=== PATIENT | female | born 1970 ===

== ENCOUNTER 2016-09-18 16:41 | Inpatient (IN) | payer BC ==
[2016-09-18 16:42] VITALS: BMI 28.2
--- NOTE | 2016-09-18 17:09 | ED PDOC ---
HPI: General Adult Time Seen by Provider: 09/18/16 16:57 Chief Complaint (Nursing): Fever Chief Complaint (Provider): fever History Per: Patient Additional Complaint(s): Patient states she is s/p hysterectomy 4 days ago and she presents today with cough and fever for the past 2 days. Patient states she has mild abdominal pain from surgery but denies any moderate to severe pain. No dysuria or vaginal bleeding. Patient denies any headache. She states temp measured at home earlier today was 101.6. Patient states she spiked fever after the surgery while she was still in the hospital and her surgeon kept her here for another day. Fever resolved so she was sent home. She returns today with persistent fever and dry cough. Patient also has history of anemia and has iron transfused post-op. She states she takes iron at home daily. Past Medical History Reviewed: Historical Data Vital Signs: Last Vital Signs Temp 99 F 09/18/16 16:48 Pulse 116 H 09/18/16 16:48 Resp 20 09/18/16 16:48 BP 125/70 09/18/16 16:48 Pulse Ox 98 09/18/16 18:33 - Medical History PMH: Anemia - Surgical History Other surgeries: tubal ligation, hysterectomy - Family History Family History: States: No Known Family Hx - Living Arrangements Living Arrangements: With Family - Social History Current smoker - smoking cessation education provided: No Alcohol: None Drugs: Denies - Home Medications Home Medications: Ambulatory Orders Medication Instructions Recorded Multivitamin [Multivitamins] 1 each PO DAILY 09/14/16 Docusate [Colace] 200 mg PO BID 09/18/16 oxyCODONE/Acetaminophen [Percocet 1 tab PO HS 09/18/16 5/325 mg Tab] - Allergies Allergies/Adverse Reactions: Allergies Allergy/AdvReac Type Severity Reaction Status Date / Time No Known Allergies Allergy Verified 09/18/16 16:48 Review of Systems ROS Statement: Except As Marked, All Systems Reviewed And Found Negative Constitutional: Positive for: Fever Cardiovascular: Negative for: Chest Pain Respiratory: Positive for: Cough (dry) Gastrointestinal: Positive for: Abdominal Pain (2 days post op). Negative for: Nausea, Vomiting, Diarrhea Genitourinary Female: Negative for: Dysuria, Vaginal Discharge, Vaginal Bleeding Physical Exam - Reviewed Nursing Documentation Reviewed: Yes Vital Signs Reviewed: Yes - Physical Exam Appears: Positive for: Well, Non-toxic, No Acute Distress Eye Exam: Positive for: Normal appearance, EOMI, PERRL Cardiovascular/Chest: Positive for: Regular Rate, Rhythm Respiratory: Positive for: Normal Breath Sounds Gastrointestinal/Abdominal: Positive for: Other (mildly tenderness ) Back: Negative for: L CVA Tenderness, R CVA Tenderness Extremity: Positive for: Normal ROM. Negative for: Pedal Edema Neurologic/Psych: Positive for: Alert, Oriented - Laboratory Results Result Diagrams: 09/18/16 18:38 09/18/16 18:38 - ECG O2 Sat by Pulse Oximetry: 98 Pulse Ox Interpretation: Normal - Other Rad CXR X-Ray: Interpreted by Me, Viewed By Me X-Ray Interpretation: no infiltrate, NAP Medical Decision Making Medical Decision Makin46 year old with fever and cough for 2 days, s/p hysterectomy Plan: Blood cultures CBC CMP PO motrin IVF Flu swab CXR Employee Development Director spoke with Dr. Lancaster, patient gynecological surgeon. He states to admit to his service. He agrees with ordered CT chest, abd and pelvis with IV contrast and states to start IV zosyn and flagyl empirically. Will contact Dr. Lancaster with CT results. Disposition - Clinical Impression Clinical Impression: Postoperative fever - Patient ED Disposition Is Patient to be Admitted: Transfer of Care - Disposition Disposition: Transfer of Care Disposition Time: 19:50 Condition: STABLE Patient Signed Over To: Hugo Pruett Handoff Comments: signed out to Dr. Pruett pending CT Results - Vital Signs Recent Vital Signs: Last Vital Signs Temp 99 F 09/18/16 16:48 Pulse 116 H 09/18/16 16:48 Resp 20 09/18/16 16:48 BP 125/70 09/18/16 16:48 Pulse Ox 98 09/18/16 19:50 - Labs Result Diagrams: 09/18/16 18:38 09/18/16 18:38 Labs: Laboratory Results - last 24 hr 09/18/16 09/18/16 09/18/16 15:37 17:30 17:33 WBC RBC Hgb Hct MCV MCH MCHC RDW Plt Count MPV Neut % (Auto) Lymph % (Auto) [place] % (Auto) Eos % (Auto) Baso % (Auto) Neut # Lymph # [place] # Eos # Baso # Neutrophils % (Manual) Band Neutrophils % Lymphocytes % (Manual) Monocytes % (Manual) Eosinophils % (Manual) Platelet Estimate Plt Clumps, EDTA Hypochromasia (manual) Anisocytosis (manual) Microcytosis (manual) Macrocytosis (manual) pO2 17 L VBG pH 7.39 VBG pCO2 38 L VBG HCO3 21.6 VBG Total CO2 24.2 VBG O2 Sat (Calc) 22.2 L VBG Base Excess -1.7 L VBG Potassium 4.1 Sodium 133.0 Chloride 102.0 Glucose 127 H Lactate 2.0 FiO2 21.0 Potassium Carbon Dioxide Anion Gap BUN Creatinine Est GFR ( Amer) Est GFR (Non-Af Amer) Random Glucose Calcium Total Bilirubin AST ALT Alkaline Phosphatase Total Protein Albumin Globulin Albumin/Globulin Ratio Venous Blood Potassium 4.1 Urine Color Yellow Urine Clarity Slighty-cloudy Urine pH 6.0 Ur Specific [place] 1.015 Urine Protein 30 Urine Glucose (UA) Neg Urine Ketones Trace Urine Blood Moderate Urine Nitrate Negative Urine Bilirubin Negative Urine Urobilinogen 2.0 H Ur Leukocyte Esterase Trace Urine RBC (Auto) 6 H Urine Microscopic WBC 6 H Ur Squamous Epith Cells 6 H Urine Bacteria Rare Influenza Typ A,B (EIA) Negative for flu a/b 09/18/16 18:38 WBC 23.6 H D RBC 3.96 Hgb 8.3 L Hct 27.7 L MCV 70.0 L MCH 21.0 L MCHC 29.9 L RDW 17.7 H Plt Count 249 MPV 8.3 Neut % (Auto) 91.8 H Lymph % (Auto) 2.5 L [place] % (Auto) 5.4 Eos % (Auto) 0.0 Baso % (Auto) 0.3 Neut # 21.6 H Lymph # 0.6 L [place] # 1.3 H Eos # 0.0 Baso # 0.1 Neutrophils % (Manual) 90 H Band Neutrophils % 2 Lymphocytes % (Manual) 2 L Monocytes % (Manual) 5 Eosinophils % (Manual) 1 Platelet Estimate Normal Plt Clumps, EDTA Present Hypochromasia (manual) Moderate Anisocytosis (manual) Slight Microcytosis (manual) Slight Macrocytosis (manual) Slight pO2 VBG pH VBG pCO2 VBG HCO3 VBG Total CO2 VBG O2 Sat (Calc) VBG Base Excess VBG Potassium Sodium 135 Chloride 98 Glucose Lactate FiO2 Potassium 3.8 Carbon Dioxide 22 Anion Gap 18 BUN 10 Creatinine 0.5 L Est GFR ( Amer) > 60 Est GFR (Non-Af Amer) > 60 Random Glucose 120 H Calcium 9.5 Total Bilirubin 1.5 H AST 113 H ALT 69 H Alkaline Phosphatase 97 Total Protein 8.0 Albumin 4.3 Globulin 3.7 Albumin/Globulin Ratio 1.2 Venous Blood Potassium Urine Color Urine Clarity Urine pH Ur Specific [place] Urine Protein Urine Glucose (UA) Urine Ketones Urine Blood Urine Nitrate Urine Bilirubin Urine Urobilinogen Ur Leukocyte Esterase Urine RBC (Auto) Urine Microscopic WBC Ur Squamous Epith Cells Urine Bacteria Influenza Typ A,B (EIA)
[2016-09-18] MEDS ORDERED: Sodium Chloride 0.9% 1,000 ML IV STA ×2 (17:27→19:01)
--- NOTE | 2016-09-18 17:47 | RAD ---
HISTORY: cough COMPARISON: None available TECHNIQUE: Chest PA and lateral FINDINGS: LUNGS: No focal consolidation. Please note that chest x-ray has limited sensitivity for the detection of pulmonary masses. PLEURA: No significant pleural effusion identified. No definite pneumothorax . CARDIOVASCULAR: The cardiomediastinal silhouette appears within normal limits of size. OSSEOUS STRUCTURES: No acute osseous abnormality identified. VISUALIZED UPPER ABDOMEN: Unremarkable. OTHER FINDINGS: None. IMPRESSION: No focal consolidation, significant pleural effusion, or definite pneumothorax identified.
[2016-09-18 17:49] LABS: RBC URINE 6 /hpf (0-3); URINE BACTERIA RARE (<OCC); URINE BILIRUBIN NEGATIVE (NEGATIVE); URINE BLOOD MODERATE (NEGATIVE); URINE COLOR YELLOW (YELLOW); URINE GLUCOSE (UA) NEG (Normal); URINE KETONE TRACE mg/dL (NEGATIVE); URINE LEUKOCYTE ESTERASE TRACE Leu/uL (Negative); URINE PROTEIN 30 mg/dL (NEGATIVE); WBC URINE 6 /hpf (0-5)
[2016-09-18 18:07] LABS: VENOUS BLOOD GAS BASE EXCESS -1.7 mmol/L (0.0-2.0); VENOUS BLOOD GAS PCO2 38 mmHg (40-60); VENOUS BLOOD PH 7.39 (7.32-7.43)
[2016-09-18 18:42] LABS: BASO # 0.1 K/uL (0.0-0.2); BASO % 0.3 % (0.0-2.0); HEMATOCRIT 27.7 % (34.0-47.0); LYMPH # 0.6 K/uL (1.0-4.3); LYMPH % 2.5 % (20.0-40.0); MEAN CORPUSCULAR HGB CONC 29.9 g/dL (33.0-37.0); MEAN PLATELET VOLUME 8.3 fl (7.2-11.7); MONO # 1.3 K/uL (0.0-0.8); MONO % 5.4 % (0.0-10.0); NEUT # 21.6 K/uL (1.8-7.0); NEUT % 91.8 % (50.0-75.0); PLATELET COUNT 249 K/uL (130-400); RED CELL DISTRIBUTION WIDTH 17.7 % (11.5-14.5)
[2016-09-18 18:47] LABS: WHITE BLOOD COUNT 23.6 K/uL (4.8-10.8)
[2016-09-18 18:55] LABS: ALB/GLOB RATIO 1.2 (1.0-2.1); ALKALINE PHOSPHATASE 97 U/L (38-126); ALT/SGPT 69 U/L (9-52); AST/SGOT 113 U/L (14-36); BILIRUBIN,TOTAL 1.5 mg/dl (0.2-1.3); BLOOD UREA NITROGEN 10 mg/dl (7-17); CALCIUM 9.5 mg/dL (8.4-10.2); CARBON DIOXIDE 22 mmol/L (22-30); CHLORIDE 98 mmol/L (98-107); GFR AFRICAN-AMERICAN > 60; GLUCOSE,RANDOM 120 mg/dL (65-105); POTASSIUM 3.8 MMOL/L (3.6-5.0); SODIUM 135 mmol/l (132-148)
[2016-09-18 19:34] LABS: NEUTROPHIL 90 % (42-75); TOTAL CELLS COUNTED 100
[2016-09-18 19:35] LABS: EOSINOPHIL 1 % (0-7); PLATELET CLUMPS PRESENT
[2016-09-18] MEDS ORDERED: metroNIDAZOLE 500mg/100ml NS 100 ML IVPB STA (19:46)
[2016-09-18] MEDS ORDERED: Piperacillin/Tazobact 3.375 GM in Sodium Chloride 0.9% 100 ML IVPB STA (19:46)
[2016-09-18] MEDS ORDERED: Sodium Chloride 0.9% 50 ML IV ONE (20:03)
[2016-09-18] MEDS ORDERED: Iohexol 300 100 ML IJ ONE (20:03)
[2016-09-18] MEDS ORDERED: Piperacillin/Tazobact 3.375 gm Inj IVPB ONE (20:33)
[2016-09-18] MEDS ORDERED: metroNIDAZOLE 500mg/100ml NS 100 ML IVPB ONE (20:33)
--- NOTE | 2016-09-18 20:43 | ED PDOC ---
"- Laboratory Results Result Diagrams: 09/18/16 18:38 09/18/16 18:38 - ECG O2 Sat by Pulse Oximetry: 97 Medical Decision Making Medical Decision Making: Time: 1999 Patient signed out by Ayana Street PA-C pending CT Time: 2119 EXAM: CT Abdomen and Pelvis With Intravenous Contrast. CLINICAL HISTORY: 46 years old, female; Pain; Abdominal pain; Chest pain; Prior surgery; Surgery date: 3-7 days postoperative; Surgery type: Hysterectomy; Additional info: Post-op fever TECHNIQUE: Axial computed tomography images of the abdomen and pelvis with intravenous contrast. This CT exam was performed using one or more of the following dose reduction techniques : automated exposure control, adjustment of the mA and/or kV according to patient size, and/ or use of iterative reconstruction technique. Coronal and sagittal reformatted images were created and reviewed. CONTRAST: 100 mL of [id number] administered intravenously. COMPARISON: No relevant prior studies available. Findings: ABDOMEN: Liver: Unremarkable. No mass. Gallbladder and bile ducts: Unremarkable. No calcified stones. No ductal dilation. Pancreas: Unremarkable. No mass. No ductal dilation. Spleen: Unremarkable. No splenomegaly. Adrenals: Unremarkable. No mass. Kidneys and ureters: Unremarkable. No solid mass. No hydronephrosis. Stomach and bowel: Wall thickening involving the sigmoid and rectum is presumably secondarily inflame less likely proctitis. Moderate fecal retention. Appendix: No findings to suggest acute appendicitis. PELVIS: Bladder: Hysterectomy which is recent. There is stranding and infiltration identified in the pelvic fat. Urinary bladder wall is thickened with surrounding stranding suggesting cystitis. Air in the bladder presumably from a recent catheter correlate clinically. SAMUEL DUBOIS | Preliminary Radiology Report Page 2 of 3 Reproductive: See above. ABDOMEN and PELVIS: Intraperitoneal space: There is a midline pelvic fluid collection identified measuring 3.5 x 5.3 cm on image 210 centrally anterior to the rectum with foci of gas anteriorly. Although this represent a seroma developing abscess is not excludable. Bones/joints: No acute fracture. No dislocation. Soft tissues: The air in the abdominal wall is presumably postprocedural. Vasculature: Unremarkable. No abdominal aortic aneurysm. Lymph nodes: There appear to be peripheral enhancing low density structures in the adnexa bilaterally larger on the left measuring 2.9 x 1.7 cm on image 2. If the ovaries b remain these may be a remnant ovarian cysts. If there has been a resection of the ovaries findings may represent abscesses or developing lymphoceles. Retroperitoneal nodes may be inflamed with some fat stranding. Etiologies include reactive versus neoplastic. IMPRESSION: 1. Hysterectomy which is recent. There is stranding and infiltration identified in the pelvic fat. Urinary bladder wall is thickened with surrounding stranding suggesting cystitis. Air in the bladder presumably from a recent catheter correlate clinically. 2. There is a midline pelvic fluid collection identified measuring 3.5 x 5.3 cm on image 210 centrally anterior to the rectum with foci of gas anteriorly. Although this represent a seroma developing abscess is not excludable. 3. There appear to be peripheral enhancing low density structures in the adnexa bilaterally larger on the left measuring 2.9 x 1.7 cm on image 2. If the ovaries b remain these may be a remnant ovarian cysts. If there has been a resection of the ovaries findings may represent abscesses or developing lymphoceles. 4. Wall thickening involving the sigmoid and rectum is presumably secondarily inflame less likely proctitis. EXAM: CT Chest With Intravenous Contrast. CLINICAL HISTORY: 46 years old, female; Pain; Abdominal pain; Chest pain; Prior surgery; Surgery date: 3-7 days postoperative; Surgery type: Hysterectomy; Additional info: Post-op fever TECHNIQUE: Axial computed tomography images of the chest with intravenous contrast. This CT exam was performed using one or more of the following dose reduction techniques: automated exposure control, adjustment of the mA and/or kV according to patient size, and/or use of iterative reconstruction technique. Coronal and sagittal reformatted images were created and reviewed. CONTRAST: SAMUEL DUBOIS | Preliminary Radiology Report SENIOR [employer]ACLE DATABASE DEVELOPER (QA) DISCREPANCY? If there is a discrepancy between the preliminary and final interpretation, please notify [facility] via [email or web address]. If you do not have access to our QA portal, call our QA team at [phone] CONFIDENTIALITY STATEMENT This report is intended only for the use of the referring physician, and only in accordance with law, If you received this in error, call [phone] Page 3 of 3 100 mL of [id number] administered intravenously. EXAM DATE/TIME: 09/18/2016 7:46 PM COMPARISON: No relevant prior studies available. FINDINGS: Lungs: Strands of atelectasis or fibrosis in both lungs. Pleural space: Small left pleural effusion. No pneumothorax. Heart: Unremarkable. No cardiomegaly. No significant pericardial effusion. Thyroid: Thyroid cyst on the left. Bones/joints: Unremarkable. No acute fracture. No dislocation. Soft tissues: Unremarkable. Vasculature: Unremarkable. No thoracic aortic aneurysm. Lymph nodes: Unremarkable. No enlarged lymph nodes. IMPRESSION: No acute findings. Discussed case with Dr. Lancaster, notes findings are consistent with normal post op changes. Requesting patient be admitted to his service and started on IV antibiotics, Discussed plan and findings with patient who agrees with plan on admission and antibiotics. Scribe Attestation: Documented by Claudette Diaz acting as a scribe for Hugo Tejada MD MD Scribe Attestation: All medical record entries made by the Scribe were at my direction and personally dictated by me. I have reviewed the chart and agree that the record accurately reflects my personal performance of the history, physical exam, medical decision making, and the department course for this patient. I have also personally directed, reviewed, and agree with the discharge instructions and disposition. Disposition Discussed With : Bassam Lancaster Counseled Patient/Family Regarding: Studies Performed, Diagnosis - Clinical Impression Clinical Impression: Postoperative fever - POA Present On Arrival: None - Disposition Disposition: Hospitalized as Observation Patient Disposition Time: 22:00 Condition: STABLE"
[2016-09-18] MEDS ORDERED: Oxycodone/Acetaminophen 5/325 mg Tab PO ONE (23:34)
[2016-09-19] MEDS ORDERED: Oxycodone/Acetaminophen 5/325 mg Tab PO PRN (00:37)
[2016-09-19] MEDS: Piperacillin/Tazobact 3.375 GM in Sodium Chloride 0.9% 100 ML IVPB SCH ×3 (01:29→16:30)
[2016-09-19] MEDS: Lactated Ringer's 1,000 ML IV SCH ×2 (05:35→11:16)
[2016-09-19 08:09] LABS: BLOOD UREA NITROGEN 11 mg/dl (7-17); CALCIUM 8.5 mg/dL (8.4-10.2); CARBON DIOXIDE 23 mmol/L (22-30); CHLORIDE 104 mmol/L (98-107); GFR AFRICAN-AMERICAN > 60; GLUCOSE,RANDOM 107 mg/dL (65-105); POTASSIUM 3.7 MMOL/L (3.6-5.0); SODIUM 137 mmol/l (132-148)
[2016-09-19] MEDS ORDERED: metroNIDAZOLE 500mg/100ml NS 100 ML IVPB SCH (09:00)
[2016-09-19] MEDS ORDERED: Piperacillin/Tazobact 3.375 GM in Sodium Chloride 0.9% 100 ML IVPB SCH (09:00)
[2016-09-19 09:06] LABS: BASO % 0.3 % (0.0-2.0); LYMPH # 0.3 K/uL (1.0-4.3); LYMPH % 2.2 % (20.0-40.0); MEAN CELL VOLUME 70.2 fl (81.0-99.0); MEAN CORPUSCULAR HEMOGLOBIN 21.5 pg (27.0-31.0); MEAN CORPUSCULAR HGB CONC 30.6 g/dL (33.0-37.0); MEAN PLATELET VOLUME 7.4 fl (7.2-11.7); MONO # 0.7 K/uL (0.0-0.8); MONO % 4.6 % (0.0-10.0); NEUT # 13.6 K/uL (1.8-7.0); NEUT % 92.9 % (50.0-75.0); PLATELET COUNT 205 K/uL (130-400); WHITE BLOOD COUNT 14.6 K/uL (4.8-10.8)
--- NOTE | 2016-09-19 11:09 | CT ---
CT chest, abdomen, and pelvis with IV contrast Indication: Postop fever Technique: Contiguous axial images of the chest, abdomen, and pelvis. Coronal and Sagittal reformats generated and reviewed. Oral contrast was not administered. 100 cc Omnipaque 300 injected. Radiation dose: Total exam DLP = 1238.22 MGy-cm. Comparison: None available. Findings: Visualized portions of the inferior thyroid gland demonstrates 1.5 x 0.9 cm left lower pole hypodense nodule. The mediastinal and hilar vascular structures appear within normal limits. The heart appears within normal limits of size. Left basilar atelectasis. Small left pleural effusion. No pneumothorax. No suspicious pulmonary nodules measuring greater than 5 mm. The liver, spleen, kidneys, pancreas, adrenal glands, and gallbladder appear unremarkable. The stomach is nondistended. No evidence of bowel obstruction. Rectosigmoid colonic wall thickening ; correlate clinically for infectious or inflammatory etiologies. Proctitis considered less likely. Moderate constipation. No definite free air. The appendix appears within normal limits of caliber. No secondary signs of acute appendicitis. Midline pelvic fluid collection measures approximately 3.5 x 5.3 cm (image 210) this finding is noted anterior to the rectum with foci of gas anteriorly. While this may reflect a seroma, abscess is not excluded. Peripheral enhancing low-density structures within bilateral at adnexa, [id number] (left measuring approximately 2.9 x 1.7 cm on image 2) ; these are indeterminate ; if the ovaries remain possibly remnant ovarian cyst, however ovary sipped thin resected considerations include abscesses or developing lymphoceles. Retroperitoneal lymph nodes may be inflamed with inflammatory stranding. Uterus is absent consistent with hysterectomy. Mild urinary bladder wall thickening with adjacent inflammatory changes ; correlate clinically including urinalysis to assess for cystitis. Air within the urinary bladder may be secondary to recent instrumentation. Subcutaneous emphysema within the abdominal wall, presumed postsurgical. No acute osseous abnormality is detected. Impression: 1.5 x 0.9 cm left lower pole hypodense thyroid nodule. Outpatient thyroid ultrasound may be considered for further Left basilar atelectasis. Small left pleural effusion. Rectosigmoid colonic wall thickening ; correlate clinically for infectious or inflammatory etiologies. Proctitis considered less likely. Moderate constipation. Midline pelvic fluid collection measures approximately 3.5 x 5.3 cm (image 210) this finding is noted anterior to the rectum with foci of gas anteriorly. While this may reflect a seroma, abscess is not excluded. Peripheral enhancing low-density structures within bilateral at adnexa, [id number] (left measuring approximately 2.9 x 1.7 cm on image 2) ; these are indeterminate ; if the ovaries remain possibly remnant ovarian cyst, however ovary sipped thin resected considerations include abscesses or developing lymphoceles. Retroperitoneal lymph nodes may be inflamed with inflammatory stranding. Uterus is absent consistent with hysterectomy. Mild urinary bladder wall thickening with adjacent inflammatory changes ; correlate clinically including urinalysis to assess for cystitis. Air within the urinary bladder may be secondary to recent instrumentation. Subcutaneous emphysema within the abdominal wall, presumed postsurgical. Preliminary impression was provided by virtual radiologic.
[2016-09-19 12:25] LABS: NEUTROPHIL 94 % (42-75); TOTAL CELLS COUNTED 100
[2016-09-19 12:27] LABS: LARGE PLATELETS PRESENT
--- NOTE | 2016-09-19 17:28 | CP.PCM.PN ---
Subjective - Date & Time of Evaluation Date of Evaluation: 09/19/16 Time of Evaluation: 17:26 - Subjective Subjective: Called at 400pm to evaluate patient by primary MD. Pt requesting comfortably in bed. Patient without complaints at this time. Patient denies feeling any fevers or chills. Patient denies any nausea or vomiting. Patient reports tolerating diet. Patient reports minimal pain. Objective - Vital Signs/Intake and Output Vital Signs (last 24 hours): Temp Pulse Resp BP Pulse Ox 99 F 111 H 20 114/77 99 09/19/16 16:15 09/19/16 16:15 09/19/16 16:15 09/19/16 16:15 09/19/16 16:15 - Medications Medications: Current Medications Acetaminophen (Tylenol 325mg Tab) 650 mg PO Q4 PRN PRN Reason: Fever >100.4 F Last Admin: 09/19/16 14:45 Dose: 650 mg Lactated Ringer's (Lactated Ringer's) 1,000 mls @ 75 mls/hr IV .[id number] [facility] Last Admin: 09/19/16 11:16 Dose: Not Given Piperacillin Sod/Tazobactam (Sod 3.375 gm/ Sodium Chloride) 100 mls @ 100 mls/ hr IVPB Q8 [facility] Last Admin: 09/19/16 16:30 Dose: 100 mls/hr Iron Sucrose 200 mg/ Sodium (Chloride) 110 mls @ 110 mls/hr IVPB DAILY [facility] Last Admin: 09/19/16 16:30 Dose: 110 mls/hr Ketorolac Tromethamine (Toradol) 30 mg IVP Q6 [facility] Last Admin: 09/19/16 16:37 Dose: 30 mg Oxycodone/Acetaminophen (Percocet 5/325 Mg Tab) 2 tab PO Q6 PRN PRN Reason: Pain, moderate (4-7) Stop: 09/22/16 00:38 - Labs Labs: 09/19/16 05:30 09/19/16 05:30 - Constitutional Appears: Well, No Acute Distress - Respiratory Exam Respiratory Exam: Clear to Ausculation Bilateral, NORMAL BREATHING PATTERN - Cardiovascular Exam Cardiovascular Exam: REGULAR RHYTHM - GI/Abdominal Exam Additional comments: Abdomen soft, nontender, nondistended. No rebound, no guarding. All port sites clean, dry, intact. No erythema, tenderness, swelling, induration , drainage. Normal bowel sounds. Assessment and Plan - Assessment and Plan (Free Text) Assessment: readmission for postoperative fevers status post robotic-assisted hysterectomy. Patient's status improving. White blood cell count decreasing today, low-grade fever today. Clinically, patient improving. Plan: Plan to continue IV antibiotics, IV iron transfusions. Continue current management. I discussed case with primary physician who will be seeing patient. I discussed plan with the patient and all patient questions answered.
[2016-09-20] MEDS: Piperacillin/Tazobact 3.375 GM in Sodium Chloride 0.9% 100 ML IVPB SCH ×2 (01:45→08:06)
[2016-09-20] MEDS: Lactated Ringer's 1,000 ML IV SCH (01:46)
[2016-09-20 07:12] LABS: BASO % 0.5 % (0.0-2.0); EOS # 0.1 K/uL (0.0-0.7); EOS % 0.8 % (0.0-4.0); HEMATOCRIT 20.3 % (34.0-47.0); LYMPH # 0.5 K/uL (1.0-4.3); LYMPH % 6.4 % (20.0-40.0); MEAN CELL VOLUME 70.3 fl (81.0-99.0); MEAN CORPUSCULAR HEMOGLOBIN 21.6 pg (27.0-31.0); MEAN CORPUSCULAR HGB CONC 30.7 g/dL (33.0-37.0); MEAN PLATELET VOLUME 8.4 fl (7.2-11.7); MONO # 0.5 K/uL (0.0-0.8); MONO % 6.9 % (0.0-10.0); NEUT # 6.7 K/uL (1.8-7.0); NEUT % 85.4 % (50.0-75.0); RED CELL DISTRIBUTION WIDTH 18.4 % (11.5-14.5); WHITE BLOOD COUNT 7.9 K/uL (4.8-10.8)
[2016-09-20 07:16] LABS: ALB/GLOB RATIO 0.9 (1.0-2.1); ALKALINE PHOSPHATASE 108 U/L (38-126); ALT/SGPT 67 U/L (9-52); AST/SGOT 52 U/L (14-36); BILIRUBIN,TOTAL 0.6 mg/dl (0.2-1.3); BLOOD UREA NITROGEN 15 mg/dl (7-17); CALCIUM 8.7 mg/dL (8.4-10.2); CARBON DIOXIDE 22 mmol/L (22-30); CHLORIDE 105 mmol/L (98-107); GFR AFRICAN-AMERICAN > 60; GLUCOSE,RANDOM 100 mg/dL (65-105); SODIUM 141 mmol/l (132-148); TOTAL PROTEIN 6.1 G/DL (6.3-8.2)
[2016-09-20 07:18] LABS: POTASSIUM 3.3 MMOL/L (3.6-5.0)
[2016-09-20] MEDS ORDERED: Potassium Chloride 20 mEq ER Tab PO ONE ×3 (09:39→22:00)
[2016-09-20 10:04] LABS: HEMATOCRIT 22.6 % (34.0-47.0); MEAN CELL VOLUME 70.8 fl (81.0-99.0); MEAN CORPUSCULAR HEMOGLOBIN 21.6 pg (27.0-31.0); MEAN CORPUSCULAR HGB CONC 30.5 g/dL (33.0-37.0); RED CELL DISTRIBUTION WIDTH 18.1 % (11.5-14.5)
[2016-09-20] MEDS ORDERED: Iohexol 240 (50 ml) PO ONE (10:16)
--- NOTE | 2016-09-20 12:37 | CP.PCM.CON ---
History of Present Illness - History of Present Illness History of Present Illness: This is a 46 yrs old female who had a hysterectomy 1 week ago because of bleeding fibroids, prolapsed uterus and a rectocele. A repair was done and at the time the HGB was 7.5. Post operatively, the count dropped to 6.2. She received a total of 600mg of venofer while she was in the hospital, but now she was brought to the ER with c/o fever, and dizziness. The hgb was again low at 6.7gms. She was given 200 mg of venofer x 2 days but the hgb is still 6.9gms. She c/o some soreness in the lower abdomen.. Past Patient History - Past Medical History & Family History Past Medical History?: Yes - Past Social History Smoking Status: Never Smoked - CARDIAC Hx Cardiac Disorders: No - PULMONARY Hx Respiratory Disorders: No - NEUROLOGICAL Hx Neurological Disorder: No - HEENT Hx HEENT Problems: No - RENAL Hx Chronic Kidney Disease: No - ENDOCRINE/METABOLIC Hx Endocrine Disorders: No - HEMATOLOGICAL/ONCOLOGICAL Hx Anemia: Yes - INTEGUMENTARY Hx Dermatological Problems: No - MUSCULOSKELETAL/RHEUMATOLOGICAL Hx Musculoskeletal Disorders: No Hx Falls: No - GASTROINTESTINAL Hx Gastrointestinal Disorders: No - GENITOURINARY/GYNECOLOGICAL Hx Genitourinary Disorders: Yes Hx Incontinence: Yes - PSYCHIATRIC Hx Emotional Abuse: No Hx Physical Abuse: No Hx Substance Use: No - SURGICAL HISTORY Hx Surgeries: Yes Hx Hysterectomy: Yes Hx Tubal Ligation: Yes Other/Comment: VERICOSE JACOB RIGHT LEG .GASTRIC BYPASS 2008 - ANESTHESIA Hx Anesthesia: Yes Hx Anesthesia Reactions: No Hx Malignant Hyperthermia: No Meds Allergies/Adverse Reactions: Allergies Allergy/AdvReac Type Severity Reaction Status Date / Time No Known Allergies Allergy Verified 09/18/16 16:48 - Medications Medications: Current Medications Acetaminophen (Tylenol 325mg Tab) 650 mg PO Q4 PRN PRN Reason: Fever >100.4 F Last Admin: 09/19/16 14:45 Dose: 650 mg Amoxicillin/Clavulanate Potassium (Augmentin 875 Mg-125 Mg Tab) 1 tab PO Q12 [facility] Iron Sucrose 200 mg/ Sodium (Chloride) 110 mls @ 110 mls/hr IVPB DAILY [facility] Last Admin: 09/20/16 08:06 Dose: 110 mls/hr Ketorolac Tromethamine (Toradol) 30 mg IVP Q6 [facility] Last Admin: 09/20/16 09:51 Dose: 30 mg Oxycodone/Acetaminophen (Percocet 5/325 Mg Tab) 2 tab PO Q6 PRN PRN Reason: Pain, moderate (4-7) Stop: 09/22/16 00:38 Potassium Chloride (K-Dur 20 Meq Er Tab) 20 meq PO ONCE ONE Stop: 09/20/16 16:01 Potassium Chloride (K-Dur 20 Meq Er Tab) 20 meq PO ONCE ONE Stop: 09/20/16 22:01 Physical Exam - Additional Findings Additional findings: Physical exam; Alert, well oriented, in no acute distress neck; supple, no adenopathy Chest; Clear,no rales or rhonchi Heart; RSR, no murmur Abd; Some tenderness in the suprapubic area. Results - Vital Signs Recent Vital Signs: Last Vital Signs Temp 98.1 F 09/20/16 07:56 Pulse 86 09/20/16 07:56 Resp 18 09/20/16 07:56 BP 101/67 09/20/16 07:56 Pulse Ox 99 09/20/16 07:56 - Labs Result Diagrams: 09/20/16 09:40 09/20/16 06:30 Labs: Laboratory Results - last 24 hr 09/20/16 09/20/16 09/20/16 06:30 09:40 10:55 WBC 7.9 9.0 RBC 2.89 L 3.20 L Hgb 6.2 L* 6.9 L Hct 20.3 L 22.6 L MCV 70.3 L 70.8 L MCH 21.6 L 21.6 L MCHC 30.7 L 30.5 L RDW 18.4 H 18.1 H Plt Count 159 187 MPV 8.4 Neut % (Auto) 85.4 H Lymph % (Auto) 6.4 L [place] % (Auto) 6.9 Eos % (Auto) 0.8 Baso % (Auto) 0.5 Neut # 6.7 Lymph # 0.5 L [place] # 0.5 Eos # 0.1 Baso # 0.0 Sodium 141 Potassium 3.3 L Chloride 105 Carbon Dioxide 22 Anion Gap 17 BUN 15 Creatinine 0.5 L Est GFR ( Amer) > 60 Est GFR (Non-Af Amer) > 60 Random Glucose 100 Calcium 8.7 Total Bilirubin 0.6 AST 52 H D ALT 67 H Alkaline Phosphatase 108 Total Protein 6.1 L Albumin 2.9 L D Globulin 3.1 Albumin/Globulin Ratio 0.9 L Blood Type O POSITIVE Antibody Screen Negative BBK History Checked Patient has bt Assessment & Plan - Assessment and Plan (Free Text) Assessment: Impression.; acute on chronic bleeding with a iron deficiency anemia Plan: Plan; Pt is symptomatic with th nemia. Will transfuse her 2 units of packed cells Will also do a ct scan of the abdomen and pelvis to see if there is a hematoma causing the anemia
[2016-09-20] MEDS ORDERED: Potassium Chloride 20 mEq ER Tab PO SCH (13:00)
--- NOTE | 2016-09-20 13:23 | CP.PCM.CON ---
History of Present Illness - History of Present Illness History of Present Illness: 46 yo female with no significant PMH except for anemia, fibroids and prolapse underwent hysterectomy approx 7 days ago presented to ER on TUESDAY last week with cough and fever for 2 days and found to have leukocytosis and anemia ACCORDING TO THE HISTORY : HAD BRIEF FEBRILE EPISODE POST OP WHICH RESOLVED HER HGB WAS ALSO LOW AND SHE REQUIRED A TRANSFUSION PRIOR TO DISCHARGE READMITTED ON TUESDAY WITH FEVER AND DRY COUGH WORK UP FOR PE AND DVT NEGATIVE ALL CULTURES NEGATIVE AND WBC DOWN AFTER COURSE OF ZOSYN CT ABD / PELVIS WELL CXR REVIEWED- NO CLEARCUT SOURCE SWITCHED TO AUGMENTIN TODAY DENIES FEVER CHILLS COUGH CHEST PAIN OR SOB Review of Systems - Constitutional Constitutional: As Per HPI - EENT Eyes: absent: As Per HPI, Blind Spots, Blurred Vision, Change in Vision, Decreased Night Vision, Diplopia, Discharge, Dry Eye, Exophthalmos, Floaters, Irritation, Itchy Eyes, Loss of Peripheral Vision, Pain, Photophobia, Requires Corrective Lenses, Sees Flashes, Spots in Vision, Tunnel Vision, Other Visual Disturbances, Loss of Vision, Other Ears: absent: As Per HPI, Decreased Hearing, Ear Discharge, Ear Pain, Tinnitus, Abnormal Hearing, Disequilibrium, Dizziness, Other Nose/Mouth/Throat: absent: As Per HPI, Epistaxis, Nasal Congestion, Nasal Discharge, Nasal Obstruction, Nasal Trauma, Nose Pain, Post Nasal Drip, Sinus Pain, Sinus Pressure, Bleeding Gums, Change in Voice, Dental Pain, Dry Mouth, Dysphagia, Halitosis, Hoarsness, Lip Swelling, Mouth Lesions, Mouth Pain, Odynophagia, Sore Throat, Throat Swelling, Tongue Swelling, Facial Pain, Neck Pain, Neck Mass, Other - Breasts Breasts: absent: As Per HPI, Change in Shape, Mass, Pain, Nipple Discharge, Nipple Inversion, Skin Changes, Swelling, Other - Cardiovascular Cardiovascular: absent: As Per HPI, Acrocyanosis, Chest Pain, Chest Pain at Rest , Chest Pain with Activity, Claudication, Diaphoresis, Dyspnea, Dyspnea on Exertion, Edema, Irregular Heart Rhythm, Pain Radiating to Arm/Neck/Jaw, Leg Edema, Leg Ulcers, Lightheadedness, Orthopnea, Palpitations, Paroxysmal Nocturnal Dyspnea, Pedal Edema, Radiating Pain, Rapid Heart Rate, Slow Heart Rate, Syncope, Other - Respiratory Respiratory: As Per HPI, Cough - Gastrointestinal Gastrointestinal: absent: As Per HPI, Abdominal Pain, Belching, Bloating, Change in Bowel Habits, Change in Stool Character, Coffee Ground Emesis, Constipation, Cramping, Diarrhea, Dyspepsia, Dysphagia, Early Satiety, Excessive Flatus, Fecal Incontinence, Heartburn, Hematemesis, Hematochezia, Loose Stools, Melena, Nausea, Odynophagia, Temesmus, Vomiting, Other - Genitourinary Genitourinary: absent: As Per HPI, Change in Urinary Stream, Difficulty Urinating, Dysuria, Flank Pain, Hematuria, Pyuria, Nocturia, Urinary Incontinence, Urinary Frequency, Urinary Hesitance, Urinary Urgency, Voiding Freq/Small Amts, Freq UTI, Hx Renal/Bladder Calculi, Hx /Renal Surgery, Bladder Distension, Other - Reproductive: Female Reproductive:Female: As Per HPI - Menstruation Menstruation: As Per HPI - Musculoskeletal Musculoskeletal: absent: As Per HPI, Abnormal Gait, Arthralgias, Atrophy, Back Pain, Deformity, Joint Swelling, Limited Range of Motion, Loss of Height, Muscle Cramps, Muscle Weakness, Myalgias, Neck Pain, Numbness, Radiating Pain into Limb, Stiffness, Tingling, Other - Integumentary Integumentary: absent: As Per HPI, Acne, Alopecia, Bleeding Lesions, Change in Hair, Change in Nails, Change in Pigmentation, Changing Lesions, Dry Skin, Erythema, Furuncle, Hirsutism, Lesions, New Lesions, Non-Healing Lesions, Photosensitivity, Pruritus, Rash, Skin Pain, Skin Ulcer, Sores, Striae, Swelling , Unusual Bruising, Wounds, Jaundice, Other - Neurological Neurological: absent: As Per HPI, Abnormal Gait, Abnormal Hearing, Abnormal Movements, Abnormal Speech, Behavioral Changes, Burning Sensations, Confusion, Convulsions, Disequilibrium, Dizziness, Numbness, Focal Weakness, Frequent Falls , Headaches, Lack of Coordination, Loss of Vision, Memory Loss, Paresthesias, Radicular Pain, Restless Legs, Sensory Deficit, Syncope, Tingling, Tremor, Vertigo, Weakness, Other Visual Disturbances, Other - Psychiatric Psychiatric: absent: As Per HPI, Abnormal Sleep Pattern, Anhedonia, Anxiety, Auditory Hallucinations, Behavioral Changes, Change in Appetite, Change in Libido, Confusion, Depression, Difficulty Concentrating, Hallucinations, Homicidal Ideation, Hopelessness, Irritability, Memory Loss, Mood Swings, Panic Attacks, Paranoia, Suicidal Ideation, Visual Hallucinations, Tactile Hallucinations, Other - Endocrine Endocrine: absent: As Per HPI, Change in Body Appearance, Change in Libido, Cold Intolorance, Deepening of Voice, Excessive Sweating, Fatigue, Flushing, Heat Intolorance, Increase in Ring/Shoe/Hat Size, Palpitations, Polydipsia, Polyphagia, Polyuria, Other - Hematologic/Lymphatic Hematologic: absent: As Per HPI, Easy Bleeding, Easy Bruising, Lymphadenopathy, Other Past Patient History - Past Medical History & Family History Past Medical History?: Yes - Past Social History Smoking Status: Never Smoked - CARDIAC Hx Cardiac Disorders: No - PULMONARY Hx Respiratory Disorders: No - NEUROLOGICAL Hx Neurological Disorder: No - HEENT Hx HEENT Problems: No - RENAL Hx Chronic Kidney Disease: No - ENDOCRINE/METABOLIC Hx Endocrine Disorders: No - HEMATOLOGICAL/ONCOLOGICAL Hx Anemia: Yes - INTEGUMENTARY Hx Dermatological Problems: No - MUSCULOSKELETAL/RHEUMATOLOGICAL Hx Musculoskeletal Disorders: No Hx Falls: No - GASTROINTESTINAL Hx Gastrointestinal Disorders: No - GENITOURINARY/GYNECOLOGICAL Hx Genitourinary Disorders: Yes Hx Incontinence: Yes - PSYCHIATRIC Hx Emotional Abuse: No Hx Physical Abuse: No Hx Substance Use: No - SURGICAL HISTORY Hx Surgeries: Yes Hx Hysterectomy: Yes Hx Tubal Ligation: Yes Other/Comment: VERICOSE JACOB RIGHT LEG .GASTRIC BYPASS 2009 - ANESTHESIA Hx Anesthesia: Yes Hx Anesthesia Reactions: No Hx Malignant Hyperthermia: No Meds Allergies/Adverse Reactions: Allergies Allergy/AdvReac Type Severity Reaction Status Date / Time No Known Allergies Allergy Verified 09/18/16 16:48 - Medications Medications: Current Medications Acetaminophen (Tylenol 325mg Tab) 650 mg PO Q4 PRN PRN Reason: Fever >100.4 F Last Admin: 09/19/16 14:45 Dose: 650 mg Amoxicillin/Clavulanate Potassium (Augmentin 875 Mg-125 Mg Tab) 1 tab PO Q12 [facility] Iron Sucrose 200 mg/ Sodium (Chloride) 110 mls @ 110 mls/hr IVPB DAILY [facility] Last Admin: 09/20/16 08:06 Dose: 110 mls/hr Ketorolac Tromethamine (Toradol) 30 mg IVP Q6 [facility] Last Admin: 09/20/16 09:51 Dose: 30 mg Oxycodone/Acetaminophen (Percocet 5/325 Mg Tab) 2 tab PO Q6 PRN PRN Reason: Pain, moderate (4-7) Stop: 09/22/16 00:38 Potassium Chloride (K-Dur 20 Meq Er Tab) 20 meq PO ONCE ONE Stop: 09/20/16 16:01 Potassium Chloride (K-Dur 20 Meq Er Tab) 20 meq PO ONCE ONE Stop: 09/20/16 22:01 Physical Exam - Constitutional Appears: Non-toxic, No Acute Distress, Chronically Ill - Head Exam Head Exam: ATRAUMATIC, NORMAL INSPECTION, NORMOCEPHALIC - Eye Exam Eye Exam: EOMI, PERRL. absent: Scleral icterus Pupil Exam: NORMAL ACCOMODATION - ENT Exam ENT Exam: Mucous Membranes Dry, Normal External Ear Exam, Normal Oropharynx - Neck Exam Neck exam: Negative for: Lymphadenopathy, Thyromegaly - Respiratory Exam Respiratory Exam: Decreased Breath Sounds, Clear to Auscultation Bilateral, NORMAL BREATHING PATTERN. absent: Rales, Rhonchi, Wheezes, Respiratory Distress , Stridor - Cardiovascular Exam Cardiovascular Exam: REGULAR RHYTHM, +S1, +S2. absent: Diastolic murmur, Systolic Murmur - GI/Abdominal Exam GI & Abdominal Exam: Diminished Bowel Sounds, Distended, Normal Bowel Sounds, Soft. absent: Guarding, Organomegaly, Pulsatile Mass, Rebound, Rigid, Tenderness - Rectal Exam Rectal Exam: Deferred - Exam Exam: NORMAL INSPECTION - Extremities Exam Extremities exam: Positive for: pedal pulses present. Negative for: calf tenderness, pedal edema, tenderness - Back Exam Back exam: absent: CVA tenderness (L), CVA tenderness (R), paraspinal tenderness - Neurological Exam Neurological exam: Alert, CN II-XII Intact, Oriented x3, Reflexes Normal - Psychiatric Exam Psychiatric exam: Normal Mood - Skin Skin Exam: Dry, Intact Results - Vital Signs Recent Vital Signs: Last Vital Signs Temp 98.1 F 09/20/16 07:56 Pulse 86 09/20/16 07:56 Resp 18 09/20/16 07:56 BP 101/67 09/20/16 07:56 Pulse Ox 99 09/20/16 07:56 - Labs Result Diagrams: 09/20/16 09:40 09/20/16 06:30 Labs: Laboratory Results - last 24 hr 09/20/16 09/20/16 09/20/16 06:30 09:40 10:55 WBC 7.9 9.0 RBC 2.89 L 3.20 L Hgb 6.2 L* 6.9 L Hct 20.3 L 22.6 L MCV 70.3 L 70.8 L MCH 21.6 L 21.6 L MCHC 30.7 L 30.5 L RDW 18.4 H 18.1 H Plt Count 159 187 MPV 8.4 Neut % (Auto) 85.4 H Lymph % (Auto) 6.4 L [place] % (Auto) 6.9 Eos % (Auto) 0.8 Baso % (Auto) 0.5 Neut # 6.7 Lymph # 0.5 L [place] # 0.5 Eos # 0.1 Baso # 0.0 Sodium 141 Potassium 3.3 L Chloride 105 Carbon Dioxide 22 Anion Gap 17 BUN 15 Creatinine 0.5 L Est GFR ( Amer) > 60 Est GFR (Non-Af Amer) > 60 Random Glucose 100 Calcium 8.7 Total Bilirubin 0.6 AST 52 H D ALT 67 H Alkaline Phosphatase 108 Total Protein 6.1 L Albumin 2.9 L D Globulin 3.1 Albumin/Globulin Ratio 0.9 L Blood Type O POSITIVE Antibody Screen Negative Crossmatch See Detail BBK History Checked Patient has bt Assessment & Plan (1) Postoperative fever Status: Acute (2) Iron deficiency anemia Status: Acute Priority: Medium - Assessment and Plan (Free Text) Assessment: NO CLEARCUT SOURCE OF INFECTION: ALL CULTURES NEGATIVE , IMAGING CONSISTENT WITH HEMATOMA PATIENTS COUGH HAS RESOLVED WOUNDS ARE FINE NO ABDOMINAL FINDINGS NO CVA TENDERNESS LUNGS CLEAR FEVER MAY HAVE BEEN DUE TO INTERCURRENT VIRAL INFECTION, ALTHOUGH WBC THAT HIGH WOULD BE UNUSUAL BACTERIAL SOURCE IS HIGHLY UNLIKELY GIVEN EVIDENCE STRESS, DEMARGINATION FROM SEVERE POST OP ANEMIA COULD EXPLAIN WBC ELEVATION POST OP BLEEDING/ HEMATOMA IN PELVIS MIGHT EXPLAIN FEVER LEUKOCYTOSIS AND ANEMIA WILL SEND PROCALCITONIN LEVEL SWITCH TO AUGMENTIN PO POSSIBLE D/C HOME IN AM
[2016-09-20] MEDS ORDERED: Sodium Chloride 0.9% 50 ML IV ONE (14:37)
[2016-09-20] MEDS ORDERED: Iohexol 300 100 ML IJ ONE (14:37)
--- NOTE | 2016-09-20 15:49 | CT ---
PROCEDURE: CT Abdomen and Pelvis without intravenous contrast HISTORY: anemia COMPARISON: Comparison is made to the previous study 09/18/2016 TECHNIQUE: Axial and reformatted coronal and sagittal CT images of the abdomen and pelvis were obtained after IV and oral contrast administration. Contrast Dose: 95 mL of Omnipaque 300. Radiation dose: Total exam DLP = 947.41 mGy-cm. FINDINGS: LOWER THORAX: Again seen is a trace left pleural effusion and focal opacity at the left lung base. LIVER: Mild heterogeneous enhancement of the liver is again noted without evidence of fluid collection or mass lesion. GALLBLADDER AND BILE DUCTS: Unremarkable. PANCREAS: Unremarkable. No gross lesion or ductal dilatation. SPLEEN: Unremarkable. ADRENALS: Unremarkable. No mass. KIDNEYS AND URETERS: Unremarkable. No hydronephrosis. No solid mass. VASCULATURE: Unremarkable. No aortic aneurysm. BOWEL: Unremarkable. No obstruction. No gross mural thickening. APPENDIX: There is no evidence of appendicitis. PERITONEUM: Postsurgical changes are again seen. No evidence of significant free air or free fluid in the abdomen and pelvis. Enhancing wall collection seen in the pelvis posterior to the urinary bladder contains fluid and air with air-fluid level suspicious for abscess formation. The largest transverse diameter of this collection is 7.8 centimeter and the largest AP diameter is 7.3 centimeter. LYMPH NODES: Unremarkable. No enlarged lymph nodes. BLADDER: Diffuse urinary bladder wall thickening is again noted. REPRODUCTIVE: The patient status post hysterectomy. The adnexa are not well visualized. There are inflammatory changes and fat stranding seen in the pelvis. BONES: No acute fracture. OTHER FINDINGS: Interval decrease in the amount of subcutaneous air at the anterior pelvic wall and lower anterior abdominal wall since the previous exam. Postsurgical changes around the stomach suggestive of prior bariatric surgery. IMPRESSION: Interval increase in the size of the previously described enhancing wall fluid collection in the pelvis since the previous exam. Findings suspicious for abscess formation measures 7.5 x 7.3 centimeters seen posterior to the bladder contains fluid and air-fluid level. Inflammatory changes and fat stranding seen in the pelvis. Otherwise no significant interval change since the previous exam.
[2016-09-20] MEDS: Amoxicillin-Clav 875-125 mg Tab PO SCH (21:25)
[2016-09-21 00:13] VITALS: RESP 20
[2016-09-21 07:01] LABS: BASO # 0.1 K/uL (0.0-0.2); BASO % 0.7 % (0.0-2.0); EOS # 0.1 K/uL (0.0-0.7); EOS % 1.1 % (0.0-4.0); HEMATOCRIT 25.9 % (34.0-47.0); LYMPH # 0.8 K/uL (1.0-4.3); LYMPH % 10.8 % (20.0-40.0); MEAN CELL VOLUME 72.8 fl (81.0-99.0); MEAN CORPUSCULAR HEMOGLOBIN 22.9 pg (27.0-31.0); MEAN CORPUSCULAR HGB CONC 31.4 g/dL (33.0-37.0); MEAN PLATELET VOLUME 8.5 fl (7.2-11.7); MONO # 0.7 K/uL (0.0-0.8); MONO % 8.8 % (0.0-10.0); NEUT % 78.6 % (50.0-75.0); WHITE BLOOD COUNT 7.7 K/uL (4.8-10.8)
[2016-09-21 07:15] LABS: ALKALINE PHOSPHATASE 175 U/L (38-126); ALT/SGPT 62 U/L (9-52); AST/SGOT 53 U/L (14-36); BILIRUBIN,TOTAL 0.9 mg/dl (0.2-1.3); BLOOD UREA NITROGEN 9 mg/dl (7-17); CALCIUM 8.8 mg/dL (8.4-10.2); CARBON DIOXIDE 21 mmol/L (22-30); CHLORIDE 106 mmol/L (98-107); GFR AFRICAN-AMERICAN > 60; GLUCOSE,RANDOM 94 mg/dL (65-105); POTASSIUM 3.8 MMOL/L (3.6-5.0); SODIUM 138 mmol/l (132-148); TOTAL PROTEIN 6.1 G/DL (6.3-8.2)
[2016-09-21 07:42] VITALS: BP 117/66; PULSE 92; TEMP 99.6; O2SAT 98
[2016-09-21] MEDS: Amoxicillin-Clav 875-125 mg Tab PO SCH (08:56)
== END 2016-09-21 14:30 | disposition home or self-care (01) | DRG 920 ==
LOC: H.ER 16:41 → H.EROBSV 19:02 → OBSVTOIN 19:02 → H.ERHOLD 21:26 → H.MEDSURG1 22:30
PROVIDERS: ADMIT Obstetrics & Gynecology; ATTEND Obstetrics & Gynecology
PROC: 30233N1 Transfusion of Nonautologous Red Blood Cells into Peripheral Vein, Percutaneous Approach (ICD-10-PCS; principal; 2016-09-20)
DX: N99.840 Postprocedural hematoma of a genitourinary system organ or structure following a genitourinary system procedure (principal); D62 Acute posthemorrhagic anemia; R50.82 Postprocedural fever; Z98.84 Bariatric surgery status